=== PATIENT | male | born 1930 | race Caucasian/White ===

== ENCOUNTER 2019-07-24 15:54 | Emergency (ER) | payer MEDICARE, BC ==
[2019-07-24 16:13] VITALS: RESP 18; TEMP 99
--- NOTE | 2019-07-24 18:30 | XR ---
EXAMINATION TYPE: XR tibia fibula RT DATE OF EXAM: 07/24/2019 COMPARISON: NONE HISTORY: Fall. Pain. TECHNIQUE: 4 views. FINDINGS: There is no fracture nor dislocation. Ankle mortise is anatomic. There is osteoarthritis in the knee joint with chondrocalcinosis. There is some vascular calcification. There is narrowing of patellofem oral joint space. There is plantar calcaneal spurring. IMPRESSION: No acute abnormality of the right tibia and fibula. Degenerative changes as above. Chondr ocalcinosis.
--- NOTE | 2019-07-24 18:31 | XR ---
EXAMINATION TYPE: XR femur RT DATE OF EXAM: 07/24/2019 COMPARISON: NONE HISTORY: Fall. Pain. TECHNIQUE: 4 views FINDINGS: I see no fracture nor dislocation. There is vascular calcification. Hip joint is intact. Th ere is mild osteoarthritis in the hip joint. There is some osteoarthritis in the knee joint. IMPRESSION: No acute abnormality of the right femur.
--- NOTE | 2019-07-24 18:56 | ED ---
General Adult HPI - General Chief complaint: Fall Stated complaint: Fall, R leg weakness Time Seen by Provider: 07/24/19 16:40 Source: patient, family, RN notes reviewed, old records reviewed Mode of arrival: wheelchair Limitations: physical limitation - History of Present Illness Initial comments: 88-year-old male patient presents to ED complaint of fall today. Patient was poorly walking in his house when his right knee give out and he fell forward towards his knees. Patient is not complaining of any pain at this time. Denies any trauma to head or neck. As a loss of consciousness. Son in room reports the patient is having difficulty bearing weight on his right lower extremity. Denies any other complaints. Systemic: Pt denies fatigue, fever/chills, rash. Pt denies weakness, night sweats, weight loss. Neuro: Pt denies headache, visual disturbances, syncope or pre-syncope. HEENT: Pt denies ocular discharge or irritation, otalgia, rhinorrhea, pharyngitis or notable lymphadenopathy. Cardiopulmonary: Pt denies chest pain, SOB, heart palpitations, dyspnea on exertion. Abdominal/GI: Pt denies abdominal pain, n/v/d. : Pt denies dysuria, burning w/ urination, frequency/urgency. Denies new onset urinary or bowel incontinence. MSK: Pt denies myalgia, loss of strength or function in extremities. Neuro: Pt denies new onset weakness, paresthesias. - Related Data Home Medications Medication Instructions Recorded Confirmed Aspirin EC [Ecotrin] 81 mg PO DAILY 07/05/15 07/05/15 Diltiazem HCl [Cardizem LA] 180 mg PO DAILY 07/05/15 07/05/15 HYDROcodone/APAP 7.5-325MG [[place] 1 tab PO Q6HR PRN 07/05/15 07/05/15 7.5-325] Losartan [Cozaar] 50 mg PO DAILY 07/05/15 07/05/15 Simvastatin [Zocor] 40 mg PO HS 07/05/15 07/05/15 Warfarin [Coumadin] 2.5 mg PO DAILY 07/05/15 07/05/15 Allergies Allergy/AdvReac Type Severity Reaction Status Date / Time Penicillins Allergy Unknown Verified 07/24/19 16:13 Review of Systems ROS Statement: Those systems with pertinent positive or pertinent negative responses have been documented in the HPI. ROS Other: All systems not noted in ROS Statement are negative. Past Medical History Past Medical History: Atrial Fibrillation, Hyperlipidemia, Hypertension History of Any Multi-Drug Resistant Organisms: None Reported Past Surgical History: Heart Catheterization With Stent Past Psychological History: No Psychological Hx Reported Smoking Status: Former smoker Past Alcohol Use History: None Reported Past Drug Use History: None Reported General Exam - General Exam Comments Initial Comments: Constitutional: NAD, AOX3, Pt has pleasant affect. HEENT: NC/AT, trachea midline, neck supple, no lymphadenopathy. Posterior pharynx non erythematous, without exudates. External ears appear normal, without discharge. Mucous membranes moist. Eyes PERRLA, EOM intact. There is no scleral icterus. No pallor noted. Cardiopulmonary: RRR, no murmurs, rubs or gallops, no JVD noted. Lungs CTAB in anterior and posterior barnard. No peripheral edema. Abdominal exam: Abdomen soft and non-distended. Abdomen non-tender to palpation in all 4 quadrants. Bowel sounds active in LLQ. No hepatosplenomegaly. No ecchymosis Neuro: CN II-XII intact. No nuchal rigidity. No raccon eyes, no quiñones sign, no hemotympanum. No cervical spinal tenderness. NIH 0. MSK: No posterior calf tenderness bilaterally, homans sign negative bilaterally. Posterior tibialis and radial pulse +2 bilaterally. Sensation intact in upper and lower extremities. Full active ROM in upper and lower extremities, 5/5 stregnth. Limitations: physical limitation Course Vital Signs 07/24/19 16:09 Temperature 99.0 F Pulse Rate 59 L Respiratory 18 Rate Blood Pressure 169/75 O2 Sat by Pulse 99 Oximetry Medical Decision Making - Medical Decision Making 88-year-old male patient presents to ED complaining of fall today. Was reportedly having difficulty bearing weight and right lower extremity. Patient vital signs are stable, afebrile. Physical exam did not display acute pathology. Plain films are negative. Densely acute process. Patient is ambulatory walking hallways. Pt will be discharged, will follow up with PCP tomorrow. Will return to ER if condition worsens in any way. Case discussed with Dr. Samuels. Disposition Clinical Impression: Fall Disposition: HOME SELF-CARE Condition: Stable Instructions (If sedation given, give patient instructions): Fall Prevention (ED) Additional Instructions: Follow up with primary care provider tomorrow. Return to ER if condition worsens in any way. Is patient prescribed a controlled substance at d/c from ED?: No Referrals: Abbey Peterson MD [Primary Care Provider] - 1-2 days
[2019-07-24 19:02] VITALS: BP 130/74; PULSE 80
== END 2019-07-24 19:00 | disposition home or self-care (01) ==
LOC: EC 15:54
DX: R53.1 Weakness (principal); S89.81XA Other specified injuries of right lower leg, initial encounter; R55 Syncope and collapse; I48.91 Unspecified atrial fibrillation; E78.5 Hyperlipidemia, unspecified; I10 Essential (primary) hypertension; Z79.01 Long term (current) use of anticoagulants; Z79.82 Long term (current) use of aspirin; Z79.899 Other long term (current) drug therapy; Z87.891 Personal history of nicotine dependence; Z88.0 Allergy status to penicillin; Z95.5 Presence of coronary angioplasty implant and graft; W01.0XXA Fall on same level from slipping, tripping and stumbling without subsequent striking against object, initial encounter; Y93.01 Activity, walking, marching and hiking; Y92.009 Unspecified place in unspecified non-institutional (private) residence as the place of occurrence of the external cause
CPT/HCPCS: 99285